=== PATIENT | female | born 1990 | race Caucasian/White ===

== ENCOUNTER 2022-01-05 10:42 | Inpatient (IN) ==
[2022-01-05] MEDS ORDERED: OXYTOCIN 30 UNITS/500 ML BAG IV PRN ×2 (15:43→15:45)
[2022-01-05] MEDS ORDERED: PENICILLIN G POTASSIUM 6 MU in DEXTROSE 5% 250 ML IV STA (15:49)
--- NOTE | 2022-01-05 15:50 | History & Physical Report ---
Date of Service January 05, 2022 Assessment & Plan (1) Encounter for supervision of normal in multigravida: Plan: IUP 40 weeks in early labor multiparous female pitocin augmentation of labor epidural when requested anticipate vaginal Admission and Anticipated Discharge Date Admission Date: January 05, 2022 History of Present Illness Primary Care Provider: NO PCP Patient is a 31 yo white female EDC 01/05/22 who presents at 40 weeks with mild regular contractions. she was evaluated at the office and sent to L&D for labor management. she had been scheduled for induction today. no SPROM or, bloody show. GBS (+) complicated by obesity. EFW at 32 weeks was 69%tile. NST's have been reactive. Allergies Allergy/AdvReac Type Severity Reaction Status Date / Time azithromycin Allergy Intermediate Rash Verified 01/05/22 14:15 gluten Allergy Mild RASH Verified 01/05/22 14:15 Home Medications Medication Instructions Recorded Confirmed Type fluticasone furoate 1 tabs INTRANASAL DAILY 05/28/21 01/05/22 History loratadine [Claritin] 1 tab PO PRN 05/28/21 01/05/22 History prenat.vits,daija,qvd-oxin-[id number] 1 tab PO DAILY 05/28/21 01/05/22 History breast pump #1 ea 10/25/21 01/05/22 Rx omeprazole [Prilosec] PO 12/06/21 01/05/22 History Patient History Medical History (Updated 01/05/22 @ 14:14 by Jasmin Barr RN) Hypertension affecting in third trimester, antepartum Seizure Outgrown, last seizure in 1997. Varicella vaccination Surgical History H/O wisdom tooth extraction History of tonsillectomy and adenoidectomy Family History Mother Multiple births, all liveborn 2 sets of twin siblings Father Lymphoma Other Colorectal cancer Diabetes Hypertension Ovarian cancer Thyroid disease Denies family history of Prostate cancer Breast cancer Social History Smoking Status: Never smoker Second Hand Exposure: No; Hx Alcohol Use: No Hx Substance Use: No Preferred Language: Czech Communication Ability: Effective Hearing Ability: Normal [employer] Required: Yes Beliefs That Will Affect Care: None marital status: marital status details: Fausto Polanco (34) [phone] Current Living Situation: Family Current Living Situation Comment: lives with and kids. 1 cat, 2 dogs. FOB to change litter current occupational status: employed current occupation: [employer] Feels Safe at Home: Yes Safety Concerns: Feels Safe At This Time Review of Systems All systems reviewed & are unremarkable except as noted in HPI & below Physical Exam Constitutional: WD/WN, vitals as above Psychiatric: A+Ox3, euthymic affect Genitourinary: OB Exam Abdomen: + vertex, + estimated weight (8-9 pounds) and + regular contractions (mild [id number]) Manual OB Exam: + cervical dilation 2 cm, + cervical effacement 50% and + station high Results & Data ([facility]) Vital Signs (Past 12 Hours) Vital Signs Temp Pulse Resp BP 01/05/22 14:20 98.1 F 88 18 138/75 01/05/22 14:08 88 138/75 Coding Level of Care Code None Diagnoses Encounter for supervision of normal in multigravida Z34.80
[2022-01-05] MEDS: LACTATED RINGER'S 1,000 ML IV PRN ×2 (16:20→21:24)
[2022-01-05 16:48] LABS: Hematocrit (blood only) 34.2 % (37-47); Hemoglobin 11.4 g/dL (12.0-16.0); Mean Corpuscular Hemoglobin 27.7 pg (25-34); Mean Corpuscular Hgb Conc 33.3 g/dL (32-36); Platelet Count 215 K/uL (130-400); RDW Coefficient of Variation 14.9 % (11.5-14.5); Red Blood Count 4.12 M/uL (4.2-5.4); White Blood Count 11.43 K/uL (4.8-10.8)
[2022-01-05] MEDS: PENICILLIN G POTASSIUM 3 MU in DEXTROSE 5% 100 ML IV PRN ×2 (19:55→20:00)
[2022-01-05] MEDS ORDERED: ePHEDrine sulfate 50 MG/ML AMP ONE (20:58)
[2022-01-05] MEDS ORDERED: NALOXONE HCL 0.4 MG/1 ML VIAL/CARP IV PRN (20:59)
[2022-01-05] MEDS ORDERED: fentaNYL 2MCG/ML ROPIVACAINE 1.25MG/ML 100 ML BAG EPI PRN (20:59)
[2022-01-05] MEDS ORDERED: diphenhydrAMINE 50 MG/ML VIAL IV PRN (20:59)
[2022-01-05] MEDS ORDERED: fentaNYL citrate 100 MCG/2 ML VIAL ONE (20:59)
[2022-01-05] MEDS ORDERED: ONDANSETRON INJ 2 MG/ML 2 ML VIAL IV PRN (20:59)
[2022-01-05] MEDS ORDERED: BUPIVACAINE 0.25% 30 ML VIAL ONE (20:59)
[2022-01-05] MEDS ORDERED: SODIUM CHLORIDE 0.9% INJ 10 ML VIAL ONE (20:59)
[2022-01-05] MEDS ORDERED: NALBUPHINE HCL INJ 10 MG/ML AMP IV PRN (20:59)
[2022-01-05] MEDS ORDERED: ePHEDrine sulfate 50 MG/ML AMP IV PRN (20:59)
[2022-01-05] MEDS ORDERED: NALOXONE HCL 1 MG in SODIUM CHLORIDE 0.9% 1000ML 1,000 ML IV PRN (20:59)
[2022-01-05] MEDS ORDERED: fentaNYL 2MCG/ML ROPIVACAINE 1.25MG/ML 100 ML BAG EPI ONE (21:00)
--- NOTE | 2022-01-05 21:03 | Anesthesiology Consultation ---
Date of Service January 05, 2022 Assessment & Plan (1) Encounter for pre-operative examination: Chart Review Chart Review: Acceptable Risk for Labor Epidural Consults Requested none ASA ASA2 Proposed Anesthesia Anesthesia Type: Labor Epidural Risk / Benefits Reviewed With: PT / POA / Parent / Guardian, Accepts Plan and Informed Consent Obtained History Height/Weight Height: 5 ft 5 in Weight: 116.12 kg Allergies Allergy/AdvReac Type Severity Reaction Status Date / Time azithromycin Allergy Intermediate Rash Verified 01/05/22 14:15 gluten Allergy Mild RASH Verified 01/05/22 14:15 Medications Home Medications Medication Instructions Recorded Confirmed Last Taken fluticasone furoate 1 tabs INTRANASAL DAILY 05/28/21 01/05/22 01/05/22 07:00 loratadine [Claritin] 1 tab PO PRN 05/28/21 01/05/22 Unknown prenat.vits,daija,mrs-jsqi-[id number] 1 tab PO DAILY 05/28/21 01/05/22 01/05/22 07:00 breast pump #1 ea 10/25/21 01/05/22 Unknown omeprazole [Prilosec] PO 12/06/21 01/05/22 Unknown Active Medications Generic Name Dose Route Start Last Admin Trade Name Freq PRN Reason Stop Dose Admin Lactated Ringer's 1,000 mls @ 125 mls/hr 01/05/22 15:43 01/05/22 16:20 Lr IV 01/07/22 15:42 125 mls/hr .Q8H PRN Administration L&D Protocol Protocol Penicillin G Potassium 3 mu/ 106 mls @ 100 mls/hr 01/05/22 18:43 01/05/22 20:00 Dextrose IV 01/15/22 18:42 100 mls/hr Q4H PRN Administration GBS(+) Until Delivery Oxytocin 30 units in 500 mls @ 13 mls/hr 01/05/22 15:45 01/05/22 20:00 Pitocin IV 01/07/22 15:44 0.78 units/hr .Q24H PRN 13 mls/hr Labor Induction/Augmentation Titration Protocol 0.78 UNITS/HR Past Medical History Medical History Hypertension affecting in third trimester, antepartum Seizure Outgrown, last seizure in 1997. Varicella vaccination Exercise / Class Metabolic Activity II 4-5 Yardwork/Stairs/Walk up hill Past Family History Family History Mother Multiple births, all liveborn 2 sets of twin siblings Father Lymphoma Other Colorectal cancer Diabetes Hypertension Ovarian cancer Thyroid disease Denies family history of Prostate cancer Breast cancer Past Surgical History Surgical History H/O wisdom tooth extraction History of tonsillectomy and adenoidectomy Past Anesthesia History No Hx of Anesthesia Complications and No Family Hx of Anesthesia Complications History of PONV No Hx of PONV and No Hx of Motion Sickness Social History Smoking Status: Never smoker Hx Alcohol Use: No Hx Substance Use: No substance use type: does not use Physical Exam Vital Signs Last Vital Signs Temp 97.7 F 01/05/22 16:30 Pulse 83 01/05/22 20:19 Resp 18 01/05/22 16:30 BP 129/76 01/05/22 20:19 ENMT Mouth: no dentition abnormality Thyromental Distance: > or= 3.5 Finger Breadths Mallampati Class: II Neck normal visual inspection Respiratory normal respiratory effort Auscultation: lungs clear to auscultation bilaterally Cardiovascular Rate/Rhythm: regular rate and regular rhythm Testing Laboratory Results 01/05/22 16:36
[2022-01-06] MEDS: PENICILLIN G POTASSIUM 3 MU in DEXTROSE 5% 100 ML IV PRN (00:08)
[2022-01-06] MEDS ORDERED: HYDROCORTISONE ACETATE 25 MG SUPP PR PRN (01:43)
[2022-01-06] MEDS ORDERED: BENZOCAINE 20% AER SPR 82.5 GM CAN EXT PRN (01:43)
[2022-01-06] MEDS ORDERED: DIPHTHERIA/TETANUS/PERTUSSIS 0.5 ML SYR/VIAL IM ONE (01:43)
[2022-01-06] MEDS ORDERED: oxyCODONE/ACETAMINOPHEN 5mg/325mg TAB PO PRN (01:43)
[2022-01-06] MEDS ORDERED: OXYTOCIN 30 UNITS/500 ML BAG IV PRN (01:43)
[2022-01-06] MEDS ORDERED: ACETAMINOPHEN 325 MG TAB PO PRN (01:43)
--- NOTE | 2022-01-06 01:58 | Delivery Summary ---
Vaginal Delivery Summary Date of Service January 06, 2022 Vaginal Delivery Summary [facility] Patient is a 31-year-old 3 para 2-0-0-2 white female EDC of 01/05/2022 who presented for elective induction of labor. GBS is positive. Pitocin augmentation of her labor was begun and after her second dose of penicillin had infused, her membranes were ruptured for a copious amount of clear fluid. She requested epidural analgesia which was effective. She then progressed to full dilation with the urge to push. She pushed effectively over intact perineum for delivery of a viable female . A loose nuchal cord was reduced after the head was delivered. Shoulders were delivered after hyperflexion of the hips and the rest of the infant delivered easily after the shoulders were delivered. The infant was vigorous , crying and moving all 4 limbs. After 1 minute, the cord was clamped and cut. After cord blood was obtained the placenta was expressed intact with a three-vessel cord. bleeding was controlled with dilute Pitocin and fundal massage. Estimated blood loss was 200 cc. Mother and were doing well after delivery. [facility] Vaginal Delivery Charge Delivery Type Details: [facility]
[2022-01-06] MEDS: IBUPROFEN 600 MG TAB PO PRN ×5 (04:48→23:24)
--- NOTE | 2022-01-06 07:35 | Anesthesiology Progress Note ---
Date of Service January 06, 2022 Anesthesia Post Procedure Vital Signs Vital Signs: Temp Pulse Pulse Resp BP BP Pulse Ox 01/06/22 05:00 36.6 C 87 20 127/82 98 01/06/22 03:51 104 H 109/62 01/06/22 03:19 98 H 134/63 01/06/22 03:15 18 01/06/22 03:00 96 H 148/64 H 01/06/22 02:44 86 143/87 H 01/06/22 02:14 88 130/69 01/06/22 02:00 36.7 C 18 01/06/22 01:59 93 H 128/78 01/06/22 01:41 83 18 116/86 01/06/22 01:31 83 98 01/06/22 01:29 82 154/68 H 01/06/22 01:26 98 H 98 01/06/22 01:21 115 H 100 01/06/22 01:16 98 H 100 01/06/22 01:14 90 141/68 H 01/06/22 01:11 87 100 01/06/22 01:06 87 100 01/06/22 01:01 94 H 100 01/06/22 01:00 37.0 C 18 01/06/22 00:59 90 124/68 01/06/22 00:58 96 H 94 01/06/22 00:56 86 99 01/06/22 00:51 80 100 01/06/22 00:46 77 96 01/06/22 00:44 71 123/59 L 01/06/22 00:41 72 100 01/06/22 00:36 82 99 01/06/22 00:31 82 99 01/06/22 00:30 77 18 148/78 H 01/06/22 00:26 84 99 01/06/22 00:21 86 99 01/06/22 00:16 73 99 01/06/22 00:15 71 133/77 01/06/22 00:11 71 97 01/06/22 00:06 74 99 01/06/22 00:01 82 128/58 L 97 01/06/22 00:00 18 01/05/22 23:56 76 98 01/05/22 23:51 78 97 01/05/22 23:46 78 97 01/05/22 23:45 75 114/61 01/05/22 23:41 71 98 01/05/22 23:36 83 99 01/05/22 23:31 71 100 01/05/22 23:30 18 01/05/22 23:29 80 146/77 H 01/05/22 23:26 79 99 01/05/22 23:21 78 98 01/05/22 23:16 84 96 01/05/22 23:14 71 121/69 01/05/22 23:11 83 98 01/05/22 23:06 77 97 01/05/22 23:01 74 98 01/05/22 23:00 36.7 C 18 01/05/22 22:56 84 98 01/05/22 22:51 68 98 01/05/22 22:46 76 99 01/05/22 22:45 85 130/62 01/05/22 22:41 74 99 01/05/22 22:36 75 97 01/05/22 22:31 72 96 01/05/22 22:29 36.4 C L 73 16 101/61 01/05/22 22:26 74 96 01/05/22 22:21 82 98 01/05/22 22:16 72 100 01/05/22 22:11 67 96 01/05/22 22:06 72 97 01/05/22 22:01 73 99 01/05/22 22:00 77 140/58 L 01/05/22 21:56 72 99 01/05/22 21:51 68 98 01/05/22 21:46 71 98 01/05/22 21:44 36.4 C L 71 16 122/58 L 01/05/22 21:41 72 98 01/05/22 21:36 66 99 01/05/22 21:31 72 98 01/05/22 21:28 81 109/57 L 01/05/22 21:26 83 98 01/05/22 21:25 80 134/61 01/05/22 21:22 80 143/76 H 01/05/22 21:21 81 100 01/05/22 21:17 81 165/100 H 01/05/22 21:16 77 100 01/05/22 21:11 92 H 100 01/05/22 21:06 75 100 01/05/22 20:19 83 129/76 01/05/22 19:27 75 121/75 01/05/22 17:59 81 100/70 01/05/22 16:30 36.5 C 18 01/05/22 14:20 36.7 C 88 18 138/75 01/05/22 14:08 88 138/75 Pain Intensity Lower Abdomen: Pain Intensity: 4 Transfer of Care Handoff Completed per policy Notes Mental Status: alert / awake / arousable and participated in evaluation Patient Amnestic to Procedure: Yes Nausea / Vomiting: adequately controlled Pain: adequately controlled Airway Patency, RR, SpO2: stable & adequate BP & HR: stable & adequate Hydration State: stable & adequate Anesthetic Complications: no major complications apparent and Pt Satisfied with anesthetic care
[2022-01-06] MEDS: DOCUSATE SODIUM 100 MG CAP PO SCH ×2 (08:35→20:26)
[2022-01-06] MEDS: PRENATAL VITAMIN 1 TAB PO SCH (08:35)
--- NOTE | 2022-01-07 05:49 | Obstetrical Progress Note ---
Date of Service <Mal Rand MD - Last Filed: 01/07/22 06:59> January 07, 2022 Assessment & Plan <Mal Rand MD - Last Filed: 01/07/22 06:59> (1) Vaginal delivery: 31 yo now PPD1 from at 40wk1d -Discharge to home today, instructions reviewed with patient -Vitals reviewed- HDS, afebrile -GBS+, PCN given intrapartum -Encourage ambulation for trace peripheral edema resolution -F/u in 6 weeks with OB <Kimberley Harris MD, FACOG - Last Filed: 01/07/22 07:09> (1) Vaginal delivery: Subjective <Mal Rand MD - Last Filed: 01/07/22 06:59> Ambulation: ambulating normally Voiding: no voiding problems Passing Gas:: Yes Diet Tolerance:: regular diet Lochia:: Small Feeding Type:: breast feeding Current Pain Level(1-10): 0 Pt doing well overall, no acute complaints or distress. Pain well controlled with medication. Would like to go home today. Review of Systems Denies fever/chills. Denies dyspnea, cough. Denies chest pain. Denies breast pain or discharge. Denies dysuria. Denies headache. Denies back pain. Physical Exam <Mal Rand MD - Last Filed: 01/07/22 06:59> General: Alert, oriented, no acute distress Cardiac: Regular rate and rhythm, normal S1, S2. No murmurs appreciated. Respiratory: Clear to auscultation b/l with good air flow entry, symmetric chest rise and fall. No wheezes or crackles. No increased work of breathing or accessory muscle use Abdomen: Soft, nontender, nondistended. Fundus firm and palpable at 2 cm below umbilicus. No guarding or rebound. Skin: No rashes or lesions Extremities: Warm, dry, well-perfused with capillary refill <2s b/l. +Trace peripheral edema R > L foot, no lower extremity, erythema, swelling or calf tenderness b/l. Results & Data ([facility]) <Mal Rand MD - Last Filed: 01/07/22 06:59> Vital Signs (Past 12 Hours) Vital Signs Temp Pulse Resp BP Pulse Ox 01/06/22 23:16 36.6 C 68 16 126/84 97 01/06/22 19:07 36.5 C 72 18 125/80 98 <Kimberley Harris MD, FACOG - Last Filed: 01/07/22 07:09> Co-Signing Physician Notes Resident Physician Supervision Note: I interviewed and examined the patient. Discussed with Dr. Rand and agree with findings and plan as documented in the note. Any exceptions or clarifications are listed here: [None] Documented By: Kimberley Harris MD, FACOG Resident Activity Tracking <Mal Rand MD - Last Filed: 01/07/22 06:59> Resident Involvement: Resident Care Provided Care Provided: OB Delivery
[2022-01-07 06:51] LABS: Hemoglobin 10.9 g/dL (12.0-16.0); Mean Corpuscular Hemoglobin 27.2 pg (25-34); Mean Corpuscular Volume 82.3 fL (80-100); Mean Platelet Volume 11.3 fL (7.4-10.4); Platelet Count 211 K/uL (130-400); RDW Standard Deviation 44.8 fL (36.4-46.3); Red Blood Count 4.01 M/uL (4.2-5.4); White Blood Count 11.26 K/uL (4.8-10.8)
[2022-01-07] MEDS: DOCUSATE SODIUM 100 MG CAP PO SCH (08:21)
[2022-01-07] MEDS: IBUPROFEN 600 MG TAB PO PRN (08:21)
[2022-01-07] MEDS: PRENATAL VITAMIN 1 TAB PO SCH (08:21)
[2022-01-07] MEDS ORDERED: bisacodyL 5 MG TABEC PO SCH (20:00)
[2022-01-08] MEDS ORDERED: bisacodyL 10 MG SUPP PR PRN (01:43)
== END 2022-01-07 10:57 | disposition home or self-care (01) | DRG 807 ==
LOC: 4S1 13:58 → 4E2 01-06 04:15
DX: Z22.330 Carrier of Group B streptococcus; Z3A.40 40 weeks gestation of pregnancy; O16.4 Unspecified maternal hypertension, complicating childbirth; O69.81X0 Labor and delivery complicated by cord around neck, without compression, not applicable or unspecified; Z37.0 Single live birth; O99.214 Obesity complicating childbirth